=== PATIENT | female | born 1990 | race Two or more races ===

== ENCOUNTER 2019-01-09 00:10 | Outpatient (CLI) | payer OTHER ==
[~2019-01-09] VITALS: Ht 160 cm; Wt 83.0 kg
[2019-01-09] MEDS ORDERED: PRENATAL TABLE1 EACH PO (02:21)
== END 2019-01-09 01:13 | disposition left against medical advice (07) ==
LOC: LDR 00:10 → OBS/DEL 00:10 → LDR 00:11 → OBS/DEL 01:13 → EDSTATUS 01-13 14:49
DX: O46.8X3 Other antepartum hemorrhage, third trimester (principal); O26.893 Other specified pregnancy related conditions, third trimester; Z04.1 Encounter for examination and observation following transport accident; Z34.83 Encounter for supervision of other normal pregnancy, third trimester; V49.88XA Car occupant (driver) (passenger) injured in other specified transport accidents, initial encounter; Y93.89 Activity, other specified; Y92.488 Other paved roadways as the place of occurrence of the external cause; Y99.8 Other external cause status